=== PATIENT | female | born 1950 | race African-American/Black ===

== ENCOUNTER 2017-07-19 04:16 | Emergency (ER) | payer MEDICARE, OTHER ==
[~2017-07-19] VITALS: Ht 160 cm; Wt 115.0 kg
[~2017-07-19 04:16] MED LIST: AMOX500T PO; B-COTAB41 PO; HYDR-2768 PO; LISI-360 PO; METF1000 PO; SIMV20 PO; VITA400D PO
[2017-07-19 04:18] VITALS: BP 194/85; PULSE 82; RESP 18; TEMP 98.4; O2SAT 99
[2017-07-19] MEDS ORDERED: AUGM875T3 PO (04:36)
[2017-07-19] MEDS ORDERED: NORC5TAB PO (04:36)
[2017-07-19] MEDS ORDERED: LIDOCAINE 1%/EPINEPHrine 1:100,000 SOLN 50 ML VIAL ONE (04:37)
[2017-07-19] MEDS ORDERED: AMOXICILLIN/CLAVULANATE K 875 MG TAB PO ONE (04:45)
[2017-07-19] MEDS ORDERED: LIDOCAINE 1%/EPINEPHrine 1:100,000 SOLN 20 ML VIAL INFIL ONE (04:45)
--- NOTE | 2017-07-19 04:48 | PD ---
HPI Chief Complaint: Skin Problem Time Seen by Provider: 04:29 Travel History International Travel<30 days: No Contact w/Intl Traveler<30days: No Traveled to known affect area: No History of Present Illness HPI 66-year-old black female presents emergency department with complains of a painful swollen lump in her right labia over the past week. Pain is moderate. No alleviating factors. No exacerbating factors. Denies prior abscess. PFSH Past Medical History High Cholesterol: Yes Diabetes: Yes Diminished Hearing: No Hypertension: Yes Tetanus Vaccination: < 5 Years Influenza Vaccination: No ?: Not Menopausal: Yes Past Surgical History Hysterectomy: Yes Other Surgery: Yes (LT BREAST LUMPECTOMY) Social History Alcohol Use: No Tobacco Use: No Substance Use: No Allergies-Medications (Allergen,Severity, Reaction): Coded Allergies: iodine (Unverified Allergy, Intermediate, Rash, 07/19/17) potassium iodide (Unverified Allergy, Intermediate, Rash, 07/19/17) povidone-iodine (Unverified Allergy, Intermediate, Rash, 07/19/17) sodium iodide (Unverified Allergy, Intermediate, Rash, 07/19/17) sodium iodide (Unverified Allergy, Intermediate, Rash, 07/19/17) Reported Meds & Prescriptions Reported Meds & Active Scripts Active [place] (Hydrocodone-Acetaminophen) 5 Mg-325 Mg Tab 1 Tab PO Q6H PRN 3 Days Augmentin (Amoxicillin-Clavulanate) 875-125 Mg Tab 1 Tab PO BID Lisinopril 10 mg (Lisinopril) 10 Mg Tab 10 Mg PO DAILY Reported Vitamin D (Cholecalciferol) 400 Unit Scottie 400 Unit PO DAILY Vitamin B-Complex (Multivitamins/Vitamin B Complex) Vitamin Tab 1 Tab PO DAILY Review of Systems Except as stated in HPI: all other systems reviewed are Neg Physical Exam Narrative GENERAL: This is a well-nourished, well-developed patient, in no apparent distress. Patient is examined with the nurse present SKIN: Patient has a 2 x 2 centimeter abscess to the right labia majora. HEAD: Atraumatic. Normocephalic. EYES: PERRL, EOMI, no discharge or injection. No scleral icterus. EARS: Clear NOSE: Nasal turbinates appear normal. THROAT: Mucosa pink and moist. Airway patent. NECK: Trachea midline. supple, moves head freely. LUNGS: Clear to auscultation. CV: Regular in rhythm. ABDOMEN: Soft nontender. EXT: No clubbing cyanosis or edema. Data Data Last Documented VS Vital Signs Date Time Temp Pulse Resp B/P (MAP) Pulse Ox O2 Delivery O2 Flow Rate FiO2 07/19/17 04:18 98.4 82 18 194/85 (121) 99 Orders Orders Lidocai-Epi 1%-1:100,000 Inj (Xylocaine- (07/19/17 04:45) Amoxicil-Clavulanate (Augmentin) (07/19/17 04:45) MDM Medical Decision Making Medical Screen Exam Complete: Yes Emergency Medical Condition: Yes Medical Record Reviewed: Yes Differential Diagnosis MDM: High Differential diagnoses: Abscess, folliculitis, cellulitis, lymphangitis, abrasion, contact dermatitis, Bartholin's cyst Narrative Course Patient is given Augmentin 875 mg p.o. and a incision and drainage has been performed. This is Bartholin cyst Procedures Procedure Narrative I&D abscess: After the risks and benefits were discussed the following procedure was performed. The skin is prepped and draped in the usual sterile fashion using Betadine. The abscess is anesthetized with 1% lidocaine with epinephrine. After adequate anesthesia, an 11 blade scalpel is used to make a 1 centimeter central incision. Perulant material is expressed . The wound is packed open using iodoform gauze. A clean dressing is applied. The patient tolerated the procedure well. There was no complications. Follow-up instructions were given to the patient. Diagnosis Primary Impression: Bartholin's cyst Patient Instructions: General Instructions Additional Instructions: Rest. Elevation. Sitz bath 3 times daily.. remove the packing in two days. Daily wound care with soap, water and Neosporin. Three Advil every 6 hours. Augmentin and Lortab. Follow-up with a primary care doctor in one week. Return to the ER for any problems. Med/Other Pt SpecificInfo: Prescription(s) given Scripts Hydrocodone-Acetaminophen ([place]) 5 Mg-325 Mg Tab 1 TAB PO Q6H Y for PAIN for 3 Days, #12 TAB 0 Refills Prov: Sujit Harvey MD 07/19/17 Amoxicillin-Clavulanate (Augmentin) 875-125 Mg Tab 1 TAB PO BID for Infection, #20 TAB 0 Refills Prov: Sujit Harvey MD 07/19/17 Disposition: 01 DISCHARGE HOME Condition: Stable Carlos Alberto Zhao Jul 19, 2017 04:48
[2017-07-19 04:58] VITALS: BP 179/84
== END 2017-07-19 05:26 | disposition home or self-care (01) ==
LOC: NEPD 04:16
DX: N75.0 Cyst of Bartholin's gland (principal); E78.00 Pure hypercholesterolemia, unspecified; E11.9 Type 2 diabetes mellitus without complications; I10 Essential (primary) hypertension; Z79.899 Other long term (current) drug therapy; Z88.8 Allergy status to other drugs, medicaments and biological substances
CPT/HCPCS: 56420